=== PATIENT | female | born 1935 | race Caucasian/White ===

== ENCOUNTER 2024-08-27 07:32 | Day surgery (SDC) | payer MEDICARE, OTHER ==
[2024-08-27] MEDS ORDERED: Propofol 200 MG/20 ML SDV ONE (07:34)
[2024-08-27] MEDS ORDERED: fentaNYL 50 MCG/ML SDV ONE (07:34)
[2024-08-27] MEDS: Lactated Ringers 1,000 ML IV SCH (08:21)
== END 2024-08-27 11:17 | disposition home or self-care (01) ==
LOC: JP.SDS 07:32
PROVIDERS: ATTEND Surgery
DX: Z12.11 Encounter for screening for malignant neoplasm of colon (principal); I25.10 Atherosclerotic heart disease of native coronary artery without angina pectoris; Z95.5 Presence of coronary angioplasty implant and graft; Z95.1 Presence of aortocoronary bypass graft
CPT/HCPCS: G0121; J2704; J3010; J7120